=== PATIENT | male | born 1970 | race Caucasian/White ===

== ENCOUNTER 2019-03-01 18:25 | Emergency (ER) | payer OTHER ==
[2019-03-01 18:40] VITALS: BP 108/48
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
== END 2019-03-01 19:07 | disposition home health service (06) ==
LOC: UCCORT 18:25
DX: S01.312A Laceration without foreign body of left ear, initial encounter (principal); W23.0XXA Caught, crushed, jammed, or pinched between moving objects, initial encounter; Y93.89 Activity, other specified; Y92.9 Unspecified place or not applicable; I10 Essential (primary) hypertension
CPT/HCPCS: 99212; G0463